=== PATIENT | male | born 1950 | race African-American/Black ===

== ENCOUNTER 2019-01-17 20:07 | Inpatient (IN) | payer MEDICARE, BC ==
[~2019-01-17] VITALS: Ht 175.3 cm; Wt 79.4 kg
[2019-01-17] MEDS ORDERED: SODIUM CHLORIDE 0.9% 1,000 ML IV ONE (21:27)
[2019-01-17] MEDS ORDERED: ONDANSETRON HCL 4MG/2ML INJ IV STA (21:27)
[2019-01-17 22:16] LABS: BASOPHILS % 0.4 % (0.0-2.0); EOSINOPHILS % 0.1 % (0.0-5.0); HEMATOCRIT. 39.6 % (42.0-52.0); HEMOGLOBIN. 13.1 g/dL (14.0-18.0); LYMPHOCYTES % 7.1 % (20.0-50.0); MEAN CORPUSCULAR HEMOGLOBIN 30.4 pg (28.0-32.0); MEAN PLATELET VOLUME 7.5 fl (7.4-10.4); NEUTROPHILS % 83.4 % (40.0-76.0); PLATELET 210 x1000/uL (130-400); RED BLOOD CELL COUNT 4.31 mill/uL (4.7-6.1); RED CELL DISTRIBUTION WIDTH 14.5 % (11.6-14.6)
[2019-01-17 22:22] LABS: CHLORIDE 102 mEq/L (98-107)
[2019-01-17 22:25] LABS: PARTIAL THROMBOPLASTIN TIME 23.5 sec (23.4-31.0); PROTHROMBIN TIME 10.1 sec (9.1-11.1)
[2019-01-17 22:27] LABS: ETHANOL BLOOD < 10 mg/dL
[2019-01-17] MEDS ORDERED: ASPIRIN 325MG EC TABLET PO ONE (23:15)
[2019-01-17] MEDS ORDERED: ONDANSETRON HCL 4MG/2ML INJ IV ONE (23:45)
[2019-01-17] MEDS: SODIUM CHLORIDE 0.9% 1,000 ML IV SCH (23:54)
[2019-01-18] MEDS ORDERED: MAGNESIUM/ALUMINUM HYDROXIDE/SIMETHICONE 30ML UDC PO PRN
[2019-01-18] MEDS ORDERED: ACETAMINOPHEN 325MG TABLET PO PRN
[2019-01-18] MEDS ORDERED: CLONIDINE 0.1MG TABLET PO PRN
[2019-01-18] MEDS ORDERED: DOCUSATE SODIUM 100MG CAPSULE PO PRN
[2019-01-18] MEDS ORDERED: HYDROCODONE/ACETAMINOPHEN 5/325MG TABLET PO PRN
[2019-01-18] MEDS ORDERED: ONDANSETRON HCL 4MG/2ML INJ IV PRN
[2019-01-18 06:38] LABS: CHLORIDE 104 mEq/L (98-107); HEMATOCRIT. 35.4 % (42.0-52.0); HEMOGLOBIN. 11.4 g/dL (14.0-18.0); MEAN CORPUSCULAR HEMOGLOBIN 29.8 pg (28.0-32.0); MEAN PLATELET VOLUME 7.4 fl (7.4-10.4); PLATELET 196 x1000/uL (130-400); RED BLOOD CELL COUNT 3.84 mill/uL (4.7-6.1); RED CELL DISTRIBUTION WIDTH 14.5 % (11.6-14.6)
[2019-01-18 06:47] LABS: HDL CHOLESTEROL 105 mg/dL (40-59); LDL CHOLESTEROL 63 mg/dL (5-100)
[2019-01-18 06:48] LABS: CREATINE KINASE 144 IU/L (39-308); CREATINE KINASE MB FRACTION 1.6 ng/mL (0.5-3.6)
[2019-01-18 06:49] LABS: T4 FREE 0.99 ng/dL (0.76-1.46)
[2019-01-18 07:26] LABS: PLATELET ESTIMATE NORMAL
[2019-01-18] MEDS ORDERED: ENOXAPARIN 40MG/0.4ML SYR SUBCUT SCH (09:00)
[2019-01-18 10:00] VITALS: BP 132/78
[2019-01-18 10:55] VITALS: BP 132/78
[2019-01-18] MEDS: SODIUM CHLORIDE 0.9% 1,000 ML IV SCH (12:40)
== END 2019-01-18 14:45 | disposition home or self-care (01) | DRG 312 ==
LOC: ER 20:27 → 8WST 23:32 → SUPCPDRO 23:54 → ENRESERV 01-18 07:25 → 8WST 01-18 08:57
PROVIDERS: ADMIT Hospitalist; ATTEND Hospitalist
DX: R55 Syncope and collapse (principal); D64.9 Anemia, unspecified; I10 Essential (primary) hypertension; Z88.8 Allergy status to other drugs, medicaments and biological substances
CPT/HCPCS: 36415; 71045; 80061; 80320; 82550; 82553; 83880; 84439; 84443; 84484; 93005; 93306; 93970; 96361; 96374; 96376; 99285; J1650; J2405; J7030; G0480

== ENCOUNTER 2019-02-21 11:44 | Emergency (ER) | payer MEDICARE, BC ==
[~2019-02-21] VITALS: Ht 172.7 cm; Wt 75.0 kg
[2019-02-21] MEDS ORDERED: ACETAMINOPHEN 325MG TABLET PO ONE (15:15)
[2019-02-21 17:20] VITALS: BP 136/80
== END 2019-02-21 17:30 | disposition home or self-care (01) ==
LOC: ER 11:44
DX: M75.32 Calcific tendinitis of left shoulder (principal); M79.645 Pain in left finger(s); I10 Essential (primary) hypertension; F12.10 Cannabis abuse, uncomplicated; Z88.8 Allergy status to other drugs, medicaments and biological substances; V43.52XA Car driver injured in collision with other type car in traffic accident, initial encounter; Y93.89 Activity, other specified; Y92.488 Other paved roadways as the place of occurrence of the external cause
CPT/HCPCS: 73030; 73140; 99283